=== PATIENT | female | born 1985 | race Caucasian/White ===

== ENCOUNTER 2016-06-05 04:53 | Emergency (ER) | payer MEDICAID ==
[~2016-06-05 04:53] MED LIST: ALBU8.5H4 IH; IBUP-1827 PO; KETO10TA PO; MTC10T1 PO; SULF1TAB7 PO
[2016-06-05 04:56] VITALS: BP 142/66; PULSE 115; RESP 18; O2SAT 100
--- NOTE | 2016-06-05 05:10 | ED.REPORT ---
HPI-General Illness Date of Service Jun 05, 2016 ED Provider: Dr. Ajit Singh M.D. A 31 year old female with a history of anxiety, nephrolithiasis, asthma, GERD, and migraines presents to the ED with a dog bite to her left thigh onset [place]. The patient reports being attacked by an unknown dog through several layers of clothing. She now reports left hip pain and thigh pain. The patient denies trouble walking or other symptoms. She does not have a clear memory of the event. Nursing Notes Stated Complaint: DOG BITE Chief Complaint: Extremity Trauma Nursing Notes Reviewed: Yes Allergies: Coded Allergies: hydrocodone bitartrate (Verified Allergy, Severe, HIVES, 09/07/15) cefazolin (Verified Allergy, Intermediate, RASH, 09/07/15) Scheduled Amoxicillin/Clav K 875-125 mg (Augmentin 875-125 mg) 1 Each Tablet 1 TABLET PO BID Ketorolac Tromethamine (Ketorolac Tromethamine) 10 Mg Tablet 10 MG PO QID Metoclopramide-Expunged Drug, Do Not Renew! (Reglan-Expunged Drug, Do Not Renew! ) 10 Mg Tablet 10 MG PO PRN Scheduled PRN Albuterol-Expunged Drug, Do Not Renew! (Albuterol-Expunged Drug, Do Not Renew!) 8.5 Gm Hfa.aer.ad 2 PUFFS IH PRN Ibuprofen (Ibuprofen) 600 Mg Tablet 600 MG PO QID PRN PRN For Pain Ibuprofen (Ibuprofen) 600 Mg Tablet 600 MG PO QID PRN PRN For Pain Sulfamethoxazole/Trimeth 800-160 mg (Bactrim DS) 1 Each Tablet 1 TABLET PO BID PRN PRN infection General Time Seen by MD: 05:09 Chief Complaint Other (Dog Bite) Hx Obtained From: Patient Arrived By: Walk-in Sudden in Onset?: Yes Onset Occurred: 5 - 8 hours ago Symptom Duration: Since onset Location: : Hip left: Thigh left Quality: Painful Severity: Current: Moderate Severity: Maximum: Moderate Associated with: Denies: Fever Pertinent Negative: Relieved by nothing Context Related History: Reports Asthma, Reports GERD Recent Healthcare: No recent doctor visit Past Medical History Past Medical History Anxiety Kidney Stones Asthma GERD Migraines Past Surgical History 3 abd: cesarian, adhesion removal & ovarian cyst removal Smoking History Current Every Day Smoker Social History Alcohol Use: "Social" Drug Use: Meth, THC, Other Other Social History: Good social support, Local resident Occupation disability for mental illness Ambulatory Status Independent Review of Systems - Trouble walking Full Review of Systems Constitutional: Denies: Fever Respiratory: Denies: Non-productive cough, Shortness of breath GI: Denies: Diarrhea, Vomiting Musculoskeletal: Reports: Extremity pain (Left thigh), Joint pain (Left hip) Complete sys rev & neg: except as marked. Physical Exam Vital Signs Vital Signs Date Time Temp Pulse Resp B/P Pulse Ox O2 Delivery O2 Flow Rate FiO2 06/05/16 04:56 36.8 115 18 142/66 100 Room Air Initial VS: Reviewed Head / Eyes: Atraumatic, Normocephalic ENT: Conjunctiva normal, No scleral icterus Neck: Supple, Full range of motion Respiratory: Breath sounds normal, Clear to auscultation, No respiratory distress Neurologic: Alert, Oriented, Nonfocal Psychiatric: Mood/affect normal, Behavior normal, Normal thought content General/Constitutional: Awake, Alert Overwrought Lower Extremity / Pelvis / MS: Neurologic intact, Vascular intact Lower Extremities Normals: Hip R exam normal, Hip L exam normal (Rotation of hip nontender) Skin: Warm, Dry 8x6cm oval bruise with linear superficial skin abrasion to left thigh No other wounds visualized Re-Eval/Medical Decision Med Decision/Clinical Course 31-year-old presents with a dog bite through four layers of clothing with some abrasion but no actual laceration. There is a sizable hematoma that is tender. No other injury. Bacitracin Telfa for external wound care, and Augmentin twice a day for seven days. Follow up with PCP. Percocet prepack given Source of Hx: Old records Time of Eval: 05:34 Patient Status: Condition improved Re-Evaluation/Progress Note: Discussed with patient physical exam findings, diagnosis, and plan for discharge. Follow-up and return to the ER instructions given. Patient agrees with plan for care and all questions were addressed. Counseled Regarding: Diagnosis, Need for follow-up, When/why to return to ED Discharge & Departure Shift Change Sign-Out Response to Therapy: Improved Primary Impression: Dog bite Disposition: Home Discharge Condition All VS Reviewed: Yes Condition: Improved Patient Instructions: Acute Wound Care (ED) Additional Instructions: Ibuprofen four times daily as needed for pain. Augmentin twice daily Follow-up with your doctor in the office Return if any immediate issues. Referrals: Pool Moon MD (PCP) Janneth Attestation Portions of this note were transcribed by Renetta Madden. I, Dr. Singh, personally performed the history, physical exam, and medical decision-making; I reviewed and confirmed the accuracy of the information in the transcribed note. Signed by: Janneth Diallo, 06/05/2016, 05:40 copies to: Pool Moon MD, Christopher W MD Jun 05, 2016 05:10 RENETTA MADDEN Jun 05, 2016 05:17
[2016-06-05] MEDS ORDERED: Amoxicillin-Clav 875-125 mg Tablet PO ONE (05:15)
[2016-06-05] MEDS ORDERED: Bacitracin Ointment Packet TOPICAL ONE (05:15)
[2016-06-05] MEDS ORDERED: _oxyCODONE/APAP 5-325 mg Tablet PO PRN (05:20)
[2016-06-05] MEDS ORDERED: IBUP-1827 PO (05:31)
[2016-06-05] MEDS ORDERED: AMOX-366 PO (05:31)
== END 2016-06-05 05:59 | disposition home or self-care (01) ==
LOC: SED 04:57
DX: S71.152A Open bite, left thigh, initial encounter (principal); W54.0XXA Bitten by dog, initial encounter; Y92.411 Interstate highway as the place of occurrence of the external cause; Y93.01 Activity, walking, marching and hiking; Y99.8 Other external cause status; F41.9 Anxiety disorder, unspecified; J45.909 Unspecified asthma, uncomplicated; K21.9 Gastro-esophageal reflux disease without esophagitis; F17.200 Nicotine dependence, unspecified, uncomplicated; Z87.442 Personal history of urinary calculi; Z86.69 Personal history of other diseases of the nervous system and sense organs; Z88.5 Allergy status to narcotic agent; Z88.1 Allergy status to other antibiotic agents

== ENCOUNTER 2016-08-03 22:46 | Emergency (ER) | payer MEDICAID ==
[~2016-08-03 22:46] MED LIST changes: +AMOX-366 PO
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
[2016-08-03 23:14] VITALS: BP 136/83; PULSE 110; RESP 20; O2SAT 100
[2016-08-04] MEDS ORDERED: Ondansetron 8 mg ODT Tablet PO PRN (01:10)
[2016-08-04] MEDS ORDERED: IBUP-1827 PO (01:53)
[2016-08-04 02:23] VITALS: BP 103/64; PULSE 96; RESP 16; O2SAT 100
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
== END 2016-08-04 02:24 | disposition home or self-care (01) ==
LOC: SED 22:46
DX: S50.11XA Contusion of right forearm, initial encounter (principal); S09.90XA Unspecified injury of head, initial encounter; F15.10 Other stimulant abuse, uncomplicated; X58.XXXA Exposure to other specified factors, initial encounter; Y93.89 Activity, other specified; Y99.8 Other external cause status; Y92.9 Unspecified place or not applicable; J45.909 Unspecified asthma, uncomplicated; K21.9 Gastro-esophageal reflux disease without esophagitis; F17.200 Nicotine dependence, unspecified, uncomplicated; F12.10 Cannabis abuse, uncomplicated; Z87.442 Personal history of urinary calculi; Z79.51 Long term (current) use of inhaled steroids; Z88.1 Allergy status to other antibiotic agents; Z88.5 Allergy status to narcotic agent

== ENCOUNTER 2016-08-24 08:33 | Emergency (ER) | payer MEDICAID, OTHER ==
[~2016-08-24] VITALS: Ht 154.9 cm; Wt 61.4 kg
[2016-08-24 08:37] VITALS: BP 130/80; PULSE 87; RESP 16; O2SAT 100
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
[2016-08-24] MEDS ORDERED: 0.9% Sodium Chloride 1,000 ML IV ONE (09:12)
[2016-08-24 09:50] LABS: BASOPHILS % (AUTO) 0.3 % (0-3); EOSINOPHILS % (AUTO) 3.1 % (0-5); MONOCYTES % (AUTO) 8.7 % (4-12); Mean Corpuscular Hemoglobin 29.3 pg (27.0-35.0); Mean Corpuscular Volume 86.9 fL (81-100); NEUTROPHILS % (AUTO) 51.8 % (40-74); Platelet Count 349 bil/L (150-400)
[2016-08-24 10:06] LABS: Magnesium 2.1 mg/dL (1.6-2.6)
== END 2016-08-24 11:50 | disposition home or self-care (01) ==
LOC: SED 08:33
DX: F15.10 Other stimulant abuse, uncomplicated (principal); Z59.0 Homelessness; K21.9 Gastro-esophageal reflux disease without esophagitis; F43.10 Post-traumatic stress disorder, unspecified; F17.200 Nicotine dependence, unspecified, uncomplicated; Z88.1 Allergy status to other antibiotic agents; Z88.5 Allergy status to narcotic agent
CPT/HCPCS: 36415; 80053; 83690; 83735; 85025; 87491; 87591; 96361; 96374; 99284; J1885; J7030

== ENCOUNTER 2016-10-24 11:13 | Emergency (ER) | payer OTHER ==
[~2016-10-24] VITALS: Ht 157.5 cm; Wt 79.5 kg
[2016-10-24 11:20] VITALS: BP 120/80; PULSE 94; RESP 18; O2SAT 100
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
== END 2016-10-24 15:53 | disposition home or self-care (01) ==
LOC: SED 11:13
DX: M54.5 Low back pain (principal); F15.10 Other stimulant abuse, uncomplicated; F41.9 Anxiety disorder, unspecified; J45.909 Unspecified asthma, uncomplicated; K21.9 Gastro-esophageal reflux disease without esophagitis; F43.10 Post-traumatic stress disorder, unspecified; F17.200 Nicotine dependence, unspecified, uncomplicated; Z87.442 Personal history of urinary calculi; Z88.5 Allergy status to narcotic agent; Z88.1 Allergy status to other antibiotic agents

== ENCOUNTER 2016-10-26 15:12 | Emergency (ER) | payer OTHER ==
[2016-10-26 15:12] VITALS: BP 121/86; PULSE 109; RESP 21; O2SAT 100
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
[2016-10-26 15:55] VITALS: BP 121/86; PULSE 109; RESP 21; O2SAT 100
== END 2016-10-26 17:10 | disposition home or self-care (01) ==
LOC: SED 15:12
DX: F43.0 Acute stress reaction (principal); F19.10 Other psychoactive substance abuse, uncomplicated; K21.9 Gastro-esophageal reflux disease without esophagitis; F17.200 Nicotine dependence, unspecified, uncomplicated; Z88.1 Allergy status to other antibiotic agents; Z88.5 Allergy status to narcotic agent

== ENCOUNTER 2016-10-26 23:34 | Emergency (ER) | payer OTHER ==
[~2016-10-26] VITALS: Ht 154.9 cm; Wt 56.8 kg
[2016-10-26 23:51] VITALS: BP 117/72; PULSE 98; RESP 18; O2SAT 99
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
[2016-10-27] MEDS ORDERED: Ondansetron 8 mg ODT Tablet PO ONE (00:55)
[2016-10-27 01:28] LABS: BASOPHILS % (AUTO) 0.4 % (0-3); EOSINOPHILS % (AUTO) 2.9 % (0-5); MONOCYTES % (AUTO) 10 % (4-12); Mean Corpuscular Hemoglobin 29.8 pg (27.0-35.0); Mean Corpuscular Volume 88 fL (81-100); NEUTROPHILS % (AUTO) 42.5 % (40-74); Platelet Count 485 bil/L (150-400)
== END 2016-10-27 11:47 | disposition home or self-care (01) ==
LOC: SED 23:34
DX: F15.10 Other stimulant abuse, uncomplicated (principal); F19.10 Other psychoactive substance abuse, uncomplicated; M54.2 Cervicalgia; M25.551 Pain in right hip; Y04.0XXA Assault by unarmed brawl or fight, initial encounter; Y93.89 Activity, other specified; Y92.89 Other specified places as the place of occurrence of the external cause; Y99.8 Other external cause status; G43.909 Migraine, unspecified, not intractable, without status migrainosus; J45.901 Unspecified asthma with (acute) exacerbation; K21.9 Gastro-esophageal reflux disease without esophagitis; F41.9 Anxiety disorder, unspecified; F17.200 Nicotine dependence, unspecified, uncomplicated; Z87.442 Personal history of urinary calculi; Z88.5 Allergy status to narcotic agent; Z88.8 Allergy status to other drugs, medicaments and biological substances
CPT/HCPCS: 36415; 80053; 81002; 82550; 85025; 96372; 99284; J1885

== ENCOUNTER 2016-10-27 16:24 | Emergency (ER) | payer OTHER ==
[~2016-10-27] VITALS: Ht 154.9 cm; Wt 56.8 kg
[2016-10-27 17:10] VITALS: BP 113/77; PULSE 84; RESP 14; O2SAT 100
== END 2016-10-27 18:10 | disposition left against medical advice (07) ==
LOC: SED 16:24
DX: Z53.21 Procedure and treatment not carried out due to patient leaving prior to being seen by health care provider (principal)

== ENCOUNTER 2016-11-28 23:22 | Inpatient (IN) | payer OTHER ==
[~2016-11-28] VITALS: Ht 154.9 cm; Wt 61.4 kg
[2016-11-28] MEDS: 0.9% Sodium Chloride 1,000 ML IV ONE (00:58)
[2016-11-28 23:26] VITALS: BP 120/77; PULSE 117; RESP 18; O2SAT 100
[2016-11-28] MEDS ORDERED: Ondansetron 2 mg/mL 2 mL Inj IVPUSH ONE (23:45)
[2016-11-28] MEDS ORDERED: Ketorolac 15 mg/mL Inj IVPUSH ONE (23:45)
--- NOTE | 2016-11-28 23:48 | ED.REPORT ---
HPI-Chest Pain Under 40 Date of Service Nov 28, 2016 ED Provider: Ajit Singh MD The pt is a 31 y/o female with a hx of DM, bile duct dilation (unknown cause), methamphetamine use, and asthma who presents to the ED complaining of right upper quadrant that radiates to her back, onset yesterday. Associated sx include nausea and difficulty breathing due to the pain. She denies dark urine, white stool and any other sx at this time. She recently completed an antibiotic course for a bladder infection. Nursing Notes Stated Complaint: CHEST PAIN Chief Complaint: Chest Pain Nursing Notes Reviewed: Yes Allergies: Coded Allergies: hydrocodone bitartrate (Verified Allergy, Severe, HIVES, 11/28/16) cefazolin (Verified Allergy, Intermediate, RASH, 11/28/16) Scheduled Amoxicillin/Clav K 875-125 mg (Augmentin 875-125 mg) 1 Each Tablet 1 TABLET PO BID Ketorolac Tromethamine (Ketorolac Tromethamine) 10 Mg Tablet 10 MG PO QID Metoclopramide-Expunged Drug, Do Not Renew! (Reglan-Expunged Drug, Do Not Renew! ) 10 Mg Tablet 10 MG PO PRN Scheduled PRN Albuterol-Expunged Drug, Do Not Renew! (Albuterol-Expunged Drug, Do Not Renew!) 8.5 Gm Hfa.aer.ad 2 PUFFS IH PRN Ibuprofen (Ibuprofen) 600 Mg Tablet 600 MG PO QID PRN PRN For Pain Ibuprofen (Ibuprofen) 600 Mg Tablet 600 MG PO QID PRN PRN For Pain Ibuprofen (Ibuprofen) 600 Mg Tablet 600 MG PO QID PRN PRN For Pain Sulfamethoxazole/Trimeth 800-160 mg (Bactrim DS) 1 Each Tablet 1 TABLET PO BID PRN PRN infection General Time Seen by : 23:38 Chief Complaint Other (right upper quadrant ) Hx Obtained From: Patient Arrived By: Walk-in Sudden in Onset?: Yes Onset Occurred: Yesterday Symptom Duration: Since onset Quality: Painful (right upper quadrant) Radiation: : Back Severity: Current: Severe Severity: Maximum: Severe Recent Healthcare: No recent doctor visit Past Medical History Past Medical History Notes: Patient seen here earlier today, please see that note after being brought by police. Patient's been seen twice today at [facility] as well Past Medical History No documented prior psych history Anxiety Kidney Stones Asthma GERD Migraines PTSD TMJ disease Past Surgical History 3 abd: cesarian, adhesion removal & ovarian cyst removal Smoking History Current Every Day Smoker Social History Alcohol Use: "Social" Drug Use: Meth, THC, Other Other Social History: Local resident Occupation disability for mental illness Ambulatory Status Independent Review of Systems Reports: difficulty breathing due to the pain Denies: dark urine Denies: white stool GI: Reports: Abdominal pain (right upper quadrant), Nausea Musculoskeletal: Reports: Back pain Complete sys rev & neg: except as marked. Physical Exam Initial Vital Signs Vital Signs (First) Date Time Temp Pulse Resp B/P Pulse Ox O2 Delivery O2 Flow Rate FiO2 11/28/16 23:26 36.8 117 18 120/77 100 Room Air Initial VS: Reviewed Head / Eyes: Atraumatic, Normocephalic Neck: Supple, Non-tender, Full range of motion Extremities: Vascular intact, Neuro intact, No swelling, No tenderness Skin: Warm, Dry, No cyanosis Neurologic: Alert, Oriented, Nonfocal General/Constitutional: Awake, Alert, Cooperative Distress / Hydration: Positive: Distress moderate Respiratory / Chest: Atraumatic, Breath sounds NL, Breath sounds = bilat, No respiratory distress, No rales, No rhonchi, No wheezing Cardiovascular: Heart rate NL, Regular rhythm, Heart sounds NL, No gallop, No murmurs, No rubs Abdomen: Atraumatic, Soft Tenderness/Guarding/Rebound: Positive: Guarding voluntary, Rebound localized, Tender RUQ... (Severe) Interpretation & Diagnostics CONCLUSION: Areas of decreased enhancement involving the superior pole the right kidney raising the possibility of focal pyelonephritis. There is some free fluid in the pelvis and possibly a small cyst of right ovary. Dilated common bile duct measuring 11.6 mm but no intrahepatic biliary dilatation. These findings were discussed with Dr. Singh at 11/29/2016 2:03:06 AM PDT. He states that patient has positive urine and the dilated common bile duct has been previously documented. This report was transmitted to the emergency room at 11/29/2016 - 2:05:48 AM PDT. Lab Results Interpretation Result Diagram: 11/29/16 0020 11/29/16 0020 Test 11/29/16 00:20 11/29/16 00:48 White Blood Count 18.7th/mm3 (3.8-10.1) Red Blood Count 4.41mil/mm3 (3.90-5.20) Hemoglobin 13.1g/dL (12.0-15.6) Hematocrit 38.5% (35.0-46.0) Mean Corpuscular Volume 87.3fL (81-100) Mean Corpuscular Hemoglobin 29.7pg (27.0-35.0) Mean Corpuscular Hemoglobin Concent 34.0% (32.0-37.0) Red Cell Distribution Width 14.4% (12.3-15.4) Platelet Count 361bil/L (150-400) Neutrophils (%) (Auto) 88.3% (40-74) Lymphocytes (%) (Auto) 5.3% (14-46) Monocytes (%) (Auto) 5.8% (4-12) Eosinophils (%) (Auto) 0.2% (0-5) Basophils (%) (Auto) 0.1% (0-3) Prothrombin Time 10.3sec (8.1-12.5) Prothromb Time International Ratio 0.96ratio Sodium Level 129mEq/L (134-144) Potassium Level 4.0mEq/L (3.5-5.2) Chloride Level 91mEq/L (97-108) Carbon Dioxide Level 23mmol/L (18-29) Blood Urea Nitrogen 18mg/dL (6-20) Creatinine 0.72mg/dL (0.57-1.00) Estimat Glomerular Filtration Rate 134mL/min (>59) Glucose Level 103mg/dL (60-99) Lactic Acid Level 0.9mmol/L (0.4-2.0) Calcium Level 9.0mg/dL (8.5-10.1) Magnesium Level 1.9mg/dL (1.6-2.6) Total Bilirubin 0.4mg/dL (0.0-1.2) Aspartate Amino Transf (AST/SGOT) 24U/L (0-50) Alanine Aminotransferase (ALT/SGPT) 15U/L (0-32) Alkaline Phosphatase 75U/L (25-150) Total Protein 8.1g/dL (6.4-8.4) Albumin 4.0g/dL (3.4-5.0) Lipase 15U/L (13-60) Procalcitonin 0.31ng/mL (0.00-0.08) Urine Color Yellow (YELLOW) Urine Appearance Clear (CLEAR,HAZY) Urine pH 7.0 (5.0-8.0) Urine Specific [place] 1.010 (1.003-1.035) Urine Protein 30mg/dL (NEG,TRACE) Urine Glucose (UA) Negativemg/dL (NEGATIVE) Urine Ketones Negativemg/dL (NEGATIVE) Urine Occult Blood Small (NEGATIVE) Urine Nitrite Positive (NEGATIVE) Urine Bilirubin Negative (NEGATIVE) Urine Urobilinogen Normalmg/dL (NORMAL) Urine Leukocyte Esterase Moderate (NEGATIVE) Urine RBC 0-2/hpf (0-2) Urine WBC >50/hpf (0-5) Urine Epithelial Cells Many/hpf (NONE-MOD) Urine Crystals None seen (NONE SEEN) Urine Bacteria Many/hpf (NONE-FEW) Urine Hyaline Casts None/lpf (NONE) Urine Granular Casts None seen (NONE SEEN) Urine Waxy Casts None seen (NONE SEEN) Urine Red Blood Cell Casts None seen (NONE SEEN) Urine White Blood Cell Casts None seen (NONE SEEN) Urine Mucus None seen (None Seen) Urine Trichomonas None seen (NONE SEEN) Urine Yeast None (NONE SEEN) Urinalysis Comment None Urine Culture Reflexed Indicated ECG Interpretation Time: 23:37 Interpreted by: ED physician Normal ECG Interpretation: Normal sinus rhythm Abnormal Rate: 110 (109) Rhythm / Conduction: Tachycardia Re-Eval/Medical Decision Med Decision/Clinical Course 31-year-old with history of drug abuse, presents with right-sided flank pain and right upper quadrant abdominal pain, felt to be pyelonephritis. She had a prior history also dilatation of her bile duct and may be gallstones, but a CAT scan shows only pyelonephritis, and her urine is certainly consistent with that. She already been prescribed antibiotics for UTI and has not filled that were taken the meds. She is poorly compliant and unlikely to follow-up outpatient instructions at this point. She has obvious pile on the CAT scan, an 18,000 white count and is generally ill, and will require IV antibiotics and at least a brief period of inpatient treatment. Admitted now to the medicine service. Transported in stable condition. Source of Hx: Old records Re-Evaluation/Progress : Time of Eval: 03:05 Patient Status: Condition improved Re-Evaluation/Progress Note: Informed of CT results and discussed plan for admission. Pt understands and agrees. Consultation : Referral / Consult Name: Devon Garcia MD Consulted With: Hospitalist Call Returned at: 03:05 Cleaning Team Member: Will see patient, Agrees with plan, Accepts admit Counseled Regarding: Diagnosis, Lab results, Need for admission Discharge & Departure Primary Impression: Pyelonephritis Additional Impressions: Substance abuse Methamphetamine abuse Disposition: Home Discharge Condition All VS Reviewed: Yes Condition: Improved Referrals: NOPCP (PCP) Janneth Attestation Portions of this note were transcribed by Alberto Arnold. Walter,, personally performed the history,physical exam and medical decision-making;I reviewed and confirmed the accuracy of the information in the transcribed note. Signed by Janneth Larios. 11/28/16 Portions of this note were transcribed by Jossie Richard. Dr. Francisco Watson personally performed the history, physical exam and medical decision-making; I reviewed and confirmed the accuracy of the information in the transcribed note. Signed by: Janneth Roman, 11/29/2016. Ajit Singh MD Nov 28, 2016 23:48 Alberto Arnold Nov 28, 2016 23:54 JOSSIE RICHARD Nov 29, 2016 00:42
[2016-11-29 00:40] LABS: BASOPHILS % (AUTO) 0.1 % (0-3); EOSINOPHILS % (AUTO) 0.2 % (0-5); MONOCYTES % (AUTO) 5.8 % (4-12); Mean Corpuscular Hemoglobin 29.7 pg (27.0-35.0); Mean Corpuscular Volume 87.3 fL (81-100); NEUTROPHILS % (AUTO) 88.3 % (40-74); Platelet Count 361 bil/L (150-400)
[2016-11-29] MEDS ORDERED: 0.9% Sodium Chloride 1,000 ML IV ONE ×2 (00:41→05:05)
[2016-11-29] MEDS ORDERED: Dexamethasone 10 mg/mL Inj IVPUSH ONE (00:45)
[2016-11-29] MEDS ORDERED: Haloperidol 5 mg/mL Inj IVPUSH ONE (00:45)
[2016-11-29 00:57] LABS: INR 0.96 ratio
[2016-11-29] MEDS: 0.9% Sodium Chloride 1,000 ML IV ONE (01:00)
[2016-11-29] MEDS: HYDROmorphone 1 mg/mL Inj IVPUSH PRN ×3 (01:00→03:41)
[2016-11-29 01:03] LABS: APPEARANCE,URINE CLEAR (CLEAR,HAZY); COLOR,URINE YELLOW (YELLOW)
[2016-11-29 01:04] LABS: OCCULT BLOOD,URINE SMALL (NEGATIVE); UROBILINOGEN,URINE NORMAL (NORMAL)
[2016-11-29 01:09] LABS: Magnesium 1.9 mg/dL (1.6-2.6)
[2016-11-29] MEDS ORDERED: levoFLOXacin Inj 750 MG in IV Premix 1 EACH IV ONE (01:15)
[2016-11-29] MEDS ORDERED: Lactated Ringer's 1,000 ML IV SCH (03:07)
[2016-11-29] MEDS ORDERED: 0.9% Sodium Chloride 1,000 ML IV SCH (03:07)
[2016-11-29] MEDS ORDERED: Polyethylene Glycol (PEG) 17 Gm Powder PO PRN (03:10)
[2016-11-29] MEDS ORDERED: Ondansetron 2 mg/mL 2 mL Inj IVPUSH PRN (03:10)
[2016-11-29] MEDS ORDERED: Alum-Mag Hydrox-Simeth 30 mL Suspension PO PRN (03:10)
--- NOTE | 2016-11-29 03:11 | PCM.HPMED ---
Subjective Date of Service Nov 29, 2016 Primary Provider: Admitting Physician: Primary Care Physician: Wilfredo Garcia MD Attending Physician: Admit Status: From the Emergency Department, Full Admit, [facility] Telemetry Chief Complaint: Flank pain History of Present Illness: Lyudmila Delgado is a 31 yo female with Anxiety, bile duct dilation (unknown cause ), methamphetamine use, and asthma who presents to [facility] emergency department complaining of right flank pain Patient reported the pain started yesterday and initially felt in the anterior right upper quadrant that radiates to her back. Pain described as severe and sharp pain. persistent as well. Associated symptoms include nausea and difficulty breathing due to the pain. She likely had chills and body aches. She recently completed an antibiotic (name?) course for a bladder infection. Patient active Methamphetamine IV user but reported history of endocarditis Case discussed with Dr Singh, finding consistent with pyelonephritis and will be admitted for treatment Review of Systems: Pertinent positives as noted in HPI. All other systems were reviewed and are negative Allergies Coded Allergies: hydrocodone bitartrate (Verified Allergy, Severe, HIVES, 11/28/16) cefazolin (Verified Allergy, Intermediate, RASH, 11/28/16) Home Medications None reported PMH Anxiety/Depression History of Kidney Stones Asthma GERD Migraines PTSD TMJ disease Methamphetamine Abuse . Surgical History Adhesion removal & ovarian cyst removal Family History No cardiac disease Social History Hx Alcohol Use: Yes (Pt denies) Hx Substance Use: No (pt denies, u tox + for meth, opites, ectasy) Hx Tobacco Use: Yes (5 CIGS A DAY) Smoking Status: Current Every Day Smoker Living Arrangement: Alone Exam Vital Signs Vital Sign - Last Date Time Temp Pulse Resp B/P Pulse Ox O2 Delivery O2 Flow Rate FiO2 11/28/16 23:26 36.8 117 18 120/77 100 Room Air Intake and Output 11/28/16 11/28/16 11/29/16 Cumulative From/Thru 15:00 23:00 07:00 11/28/16 23:26 - 11/29/16 01:02 Intake Total 999 ml 999 ml Balance 999 ml 999 ml Intake IV Total 999 ml 999 ml Exam General: Alert, Oriented X3, Cooperative, mild acute Distress Eyes: PERRLA, Scleral Anicteric Mouth: Mouth Normal, Mucous Membranes Moist/[place] Neck: Supple, no Thyromegaly, trachea central. Chest & Lungs: Clear to auscultation & percussion, No adventitious breath sounds, no crackles, no wheeze Cardiovascular: Normal S1, Normal S2, No Murmurs/Rubs/Gallops, sinus tachycardia , (No JVD, no peripheral edema) Pulses: Radial (present and equal), Dorsalis Pedi (present and equal) Abdomen: Soft, Non-tender, Non-distended, Normoactive bowel tones. Musculoskeletal: Unremarkable. Normal range of motion, no swollen or erythematous joints. right CVA tenderness Extremities: No edema, no cyanosis, no clubbing. Skin: No rashes. Warm and dry, no erythematous areas Neurological: Grossly neurologically intact, Normal Speech, Sensation Intact Lymphatic: Lymph nodes Cervical and Axillary not palpable Lab and Diagnostics Labs Laboratory Tests Test 11/29/16 00:20 11/29/16 00:48 White Blood Count 18.7th/mm3 (3.8-10.1) Red Blood Count 4.41mil/mm3 (3.90-5.20) Hemoglobin 13.1g/dL (12.0-15.6) Hematocrit 38.5% (35.0-46.0) Mean Corpuscular Volume 87.3fL (81-100) Mean Corpuscular Hemoglobin 29.7pg (27.0-35.0) Mean Corpuscular Hemoglobin Concent 34.0% (32.0-37.0) Red Cell Distribution Width 14.4% (12.3-15.4) Platelet Count 361bil/L (150-400) Neutrophils (%) (Auto) 88.3% (40-74) Lymphocytes (%) (Auto) 5.3% (14-46) Monocytes (%) (Auto) 5.8% (4-12) Eosinophils (%) (Auto) 0.2% (0-5) Basophils (%) (Auto) 0.1% (0-3) Prothrombin Time 10.3sec (8.1-12.5) Prothromb Time International Ratio 0.96ratio Sodium Level 129mEq/L (134-144) Potassium Level 4.0mEq/L (3.5-5.2) Chloride Level 91mEq/L (97-108) Carbon Dioxide Level 23mmol/L (18-29) Blood Urea Nitrogen 18mg/dL (6-20) Creatinine 0.72mg/dL (0.57-1.00) Estimat Glomerular Filtration Rate 134mL/min (>59) Glucose Level 103mg/dL (60-99) Lactic Acid Level 0.9mmol/L (0.4-2.0) Calcium Level 9.0mg/dL (8.5-10.1) Magnesium Level 1.9mg/dL (1.6-2.6) Total Bilirubin 0.4mg/dL (0.0-1.2) Aspartate Amino Transf (AST/SGOT) 24U/L (0-50) Alanine Aminotransferase (ALT/SGPT) 15U/L (0-32) Alkaline Phosphatase 75U/L (25-150) Total Protein 8.1g/dL (6.4-8.4) Albumin 4.0g/dL (3.4-5.0) Lipase 15U/L (13-60) Urine Color Yellow (YELLOW) Urine Appearance Clear (CLEAR,HAZY) Urine pH 7.0 (5.0-8.0) Urine Specific [place] 1.010 (1.003-1.035) Urine Protein 30mg/dL (NEG,TRACE) Urine Glucose (UA) Negativemg/dL (NEGATIVE) Urine Ketones Negativemg/dL (NEGATIVE) Urine Occult Blood Small (NEGATIVE) Urine Nitrite Positive (NEGATIVE) Urine Bilirubin Negative (NEGATIVE) Urine Urobilinogen Normalmg/dL (NORMAL) Urine Leukocyte Esterase Moderate (NEGATIVE) Urine RBC 0-2/hpf (0-2) Urine WBC >50/hpf (0-5) Urine Epithelial Cells Many/hpf (NONE-MOD) Urine Crystals None seen (NONE SEEN) Urine Bacteria Many/hpf (NONE-FEW) Urine Hyaline Casts None/lpf (NONE) Urine Granular Casts None seen (NONE SEEN) Urine Waxy Casts None seen (NONE SEEN) Urine Red Blood Cell Casts None seen (NONE SEEN) Urine White Blood Cell Casts None seen (NONE SEEN) Urine Mucus None seen (None Seen) Urine Trichomonas None seen (NONE SEEN) Urine Yeast None (NONE SEEN) Urinalysis Comment None Urine Culture Reflexed Indicated Microbiology 11/29/16 Blood Culture, Received Pending 11/29/16 Urine Culture, Received Pending Result Diagram: 11/29/16 0020 11/29/16 0020 Assessment & Plan Lyudmila Delgado is a 31 yo female with Anxiety, bile duct dilation (unknown cause ), methamphetamine use, and asthma who presents to [facility] emergency department complaining of right upper quadrant pain. 1. Sepsis, Acute. Present on admission Meeting criteria with tachycardia, fever and leukocytosis with source of infection being urinary. - monitor on telemetry - IV fluids resuscitations according to Sepsis protocol - early initiation of antibiotics 2 Acute Pyelonephritis. Present on admission Likely related to recent Urinary tract infection. Likely a resistant bacteria to the antibiotics she was treated with - clear liquid diet with antinausea medications - Levaquin IV for empiric antibiotics - Infection disease consult if available 3. Methamphetamine Abuse, chronic - monitor for withdrawal symptoms and treat symptomatically 4 Nicotine Dependence Cessation discussed and encouraged - Nicotine patch upon request - Acetaminophen as needed for mild pain/fever/headache - Bowel regimen as needed - Antiemetic as needed Patient admitted under inpatient status with expected length of stay > 2 midnights for severity of present symptoms, complexities of treatment plan and risk for adverse event . Resuscitation Status: CPR: Attempt Resuscitation Devon Garcia MD Nov 29, 2016 03:11
[2016-11-29 03:50] VITALS: BP 105/63; PULSE 107; RESP 22; O2SAT 96
[2016-11-29 06:08] VITALS: PULSE 92
--- NOTE | 2016-11-29 06:26 | NUR ---
Admit to MOC/ AMA received phone report from ED at 0356, pt arrived to floor at 0430, pt able to ambulate to bed, pt noted teary, not cooperative with nurse, using foul language, vitals taken, noted BP at 99/64 recheck at 0500 Bp at 95/62, despite receiving 2L bolus in ED, obtained order for NS bolus 1L, started, telemetry placed sinus rhythm 90s per monitoring specialist, pt noted verbalizing plans to go AMA, night hospitalist rounding at bedside, reinforced need to be treated for infection,pt non agreeable, became verbally abusive to primary nurse, pt verbalizing want to smoke cigarette, noted 1 pack in pts bag, at 0600, informed nursing supervisor dry cleaning of situation, pt pulled IV access out, pulled telemetry, at 0620 nursing supervisor dry cleaning and security at bedside, pt refused to sign AMA papers, 0624 pt ambulated independently, escorted by nursing supervisor dry cleaning and security, attending night hospitalist informed.
--- NOTE | 2016-11-29 06:28 | PCM.DC.MED ---
Discharge Summary Date of Service Nov 29, 2016 Dates of Hospitalization Date of Hospital Admission Nov 29, 2016 at 04:01 Date of Discharge: Nov 29, 2016 Providers: Admitting Physician: Devon Garcia MD Primary Care Physician: Wilfredo Garcia MD Attending Physician: Lynn Joshi DO Diagnosis at Time of Discharge Diagnosis at Time of Discharge Primary diagnosis Sepsis, Acute. Acute Pyelonephritis. Secondary diagnosis Methamphetamine Abuse Nicotine Dependence Consultations none Brief History Lyudmila Delgado is a 31 yo female with Anxiety, bile duct dilation (unknown cause ), methamphetamine use, and asthma who presents to [facility] emergency department complaining of right flank pain Patient reported the pain started yesterday and initially felt in the anterior right upper quadrant that radiates to her back. Pain described as severe and sharp pain. persistent as well. Associated symptoms include nausea and difficulty breathing due to the pain. She likely had chills and body aches. She recently completed an antibiotic (name?) course for a bladder infection. Patient active Methamphetamine IV user but reported history of endocarditis Case discussed with Dr Singh, finding consistent with pyelonephritis and will be admitted for treatment Hospital Course 1. Sepsis, Acute. Present on admission Meeting criteria with tachycardia, fever and leukocytosis with source of infection being urinary. - monitor on telemetry - IV fluids resuscitations according to Sepsis protocol - early initiation of antibiotics 2 Acute Pyelonephritis. Present on admission Likely related to recent Urinary tract infection. Likely a resistant bacteria to the antibiotics she was treated with - clear liquid diet with antinausea medications - Levaquin IV for empiric antibiotics - Infection disease consult if available 3. Methamphetamine Abuse, chronic - monitor for withdrawal symptoms and treat symptomatically 4 Nicotine Dependence Cessation discussed and encouraged - Nicotine patch upon request PATIENT WAS AGITATED AND COMPLAINED ABOUT BEING IN THE HOSPITAL. DESPITE CONVEYING THE SEPSIS AND SEVERE INFECTION AND ITS COMPLICATIONS. THE PATIENT LEFT AGAINST MEDICAL ADVISE. Exam Vital Signs (Last) Date Time Temp Pulse Resp B/P Pulse Ox O2 Delivery O2 Flow Rate FiO2 11/29/16 06:08 92 11/29/16 04:00 36.8 22 105/63 96 Room Air Exam General: Alert, Oriented X3, Cooperative, mild acute Distress Eyes: PERRLA, Scleral Anicteric Mouth: Mouth Normal, Mucous Membranes Moist/[place] Neck: Supple, no Thyromegaly, trachea central. Chest & Lungs: Clear to auscultation & percussion, No adventitious breath sounds, no crackles, no wheeze Cardiovascular: Normal S1, Normal S2, No Murmurs/Rubs/Gallops, sinus tachycardia , (No JVD, no peripheral edema) Pulses: Radial (present and equal), Dorsalis Pedi (present and equal) Abdomen: Soft, Non-tender, Non-distended, Normoactive bowel tones. Musculoskeletal: Unremarkable. Normal range of motion, no swollen or erythematous joints. right CVA tenderness Extremities: No edema, no cyanosis, no clubbing. Skin: No rashes. Warm and dry, no erythematous areas Neurological: Grossly neurologically intact, Normal Speech, Sensation Intact Lymphatic: Lymph nodes Cervical and Axillary not palpable Test 11/29/16 00:20 11/29/16 00:48 White Blood Count 18.7th/mm3 (3.8-10.1) Red Blood Count 4.41mil/mm3 (3.90-5.20) Hemoglobin 13.1g/dL (12.0-15.6) Hematocrit 38.5% (35.0-46.0) Mean Corpuscular Volume 87.3fL (81-100) Mean Corpuscular Hemoglobin 29.7pg (27.0-35.0) Mean Corpuscular Hemoglobin Concent 34.0% (32.0-37.0) Red Cell Distribution Width 14.4% (12.3-15.4) Platelet Count 361bil/L (150-400) Neutrophils (%) (Auto) 88.3% (40-74) Lymphocytes (%) (Auto) 5.3% (14-46) Monocytes (%) (Auto) 5.8% (4-12) Eosinophils (%) (Auto) 0.2% (0-5) Basophils (%) (Auto) 0.1% (0-3) Prothrombin Time 10.3sec (8.1-12.5) Prothromb Time International Ratio 0.96ratio Sodium Level 129mEq/L (134-144) Potassium Level 4.0mEq/L (3.5-5.2) Chloride Level 91mEq/L (97-108) Carbon Dioxide Level 23mmol/L (18-29) Blood Urea Nitrogen 18mg/dL (6-20) Creatinine 0.72mg/dL (0.57-1.00) Estimat Glomerular Filtration Rate 134mL/min (>59) Glucose Level 103mg/dL (60-99) Lactic Acid Level 0.9mmol/L (0.4-2.0) Calcium Level 9.0mg/dL (8.5-10.1) Magnesium Level 1.9mg/dL (1.6-2.6) Total Bilirubin 0.4mg/dL (0.0-1.2) Aspartate Amino Transf (AST/SGOT) 24U/L (0-50) Alanine Aminotransferase (ALT/SGPT) 15U/L (0-32) Alkaline Phosphatase 75U/L (25-150) Total Protein 8.1g/dL (6.4-8.4) Albumin 4.0g/dL (3.4-5.0) Lipase 15U/L (13-60) Procalcitonin 0.31ng/mL (0.00-0.08) Urine Color Yellow (YELLOW) Urine Appearance Clear (CLEAR,HAZY) Urine pH 7.0 (5.0-8.0) Urine Specific [place] 1.010 (1.003-1.035) Urine Protein 30mg/dL (NEG,TRACE) Urine Glucose (UA) Negativemg/dL (NEGATIVE) Urine Ketones Negativemg/dL (NEGATIVE) Urine Occult Blood Small (NEGATIVE) Urine Nitrite Positive (NEGATIVE) Urine Bilirubin Negative (NEGATIVE) Urine Urobilinogen Normalmg/dL (NORMAL) Urine Leukocyte Esterase Moderate (NEGATIVE) Urine RBC 0-2/hpf (0-2) Urine WBC >50/hpf (0-5) Urine Epithelial Cells Many/hpf (NONE-MOD) Urine Crystals None seen (NONE SEEN) Urine Bacteria Many/hpf (NONE-FEW) Urine Hyaline Casts None/lpf (NONE) Urine Granular Casts None seen (NONE SEEN) Urine Waxy Casts None seen (NONE SEEN) Urine Red Blood Cell Casts None seen (NONE SEEN) Urine White Blood Cell Casts None seen (NONE SEEN) Urine Mucus None seen (None Seen) Urine Trichomonas None seen (NONE SEEN) Urine Yeast None (NONE SEEN) Urinalysis Comment None Urine Culture Reflexed Indicated Discharge Medications Discharge Medications Amoxicillin/Clav K 875-125 mg (Augmentin 875-125 mg) 1 Each Tablet 1 TABLET PO BID Prescribed by: AKILA SINGH MD Ketorolac Tromethamine (Ketorolac Tromethamine) 10 Mg Tablet 10 MG PO QID Prescribed by: MERCEDES WELLS Metoclopramide-Expunged Drug, Do Not Renew! (Reglan-Expunged Drug, Do Not Renew! ) 10 Mg Tablet 10 MG PO PRN (Reported) As needed Albuterol-Expunged Drug, Do Not Renew! (Albuterol-Expunged Drug, Do Not Renew!) 8.5 Gm Hfa.aer.ad 2 PUFFS IH PRN (Reported) Ibuprofen (Ibuprofen) 600 Mg Tablet 600 MG PO QID PRN PRN For Pain Prescribed by: AKILA SINGH MD Ibuprofen (Ibuprofen) 600 Mg Tablet 600 MG PO QID PRN PRN For Pain Prescribed by: AKILA SINGH MD Ibuprofen (Ibuprofen) 600 Mg Tablet 600 MG PO QID PRN PRN For Pain Prescribed by: AKILA SINGH MD Sulfamethoxazole/Trimeth 800-160 mg (Bactrim DS) 1 Each Tablet 1 TABLET PO BID PRN PRN infection Prescribed by: MERCEDES WELLS Followup Plan Disposition: LEFT AGAINST MEDICATION ADVICE Devon Garcia MD Nov 29, 2016 06:28
[2016-11-29] MEDS ORDERED: Sodium Chloride LOK Flush 10 mL Syringe IVFLUSH SCH (08:30)
--- NOTE | 2016-11-29 08:52 | DRSVH ---
PROCEDURE: CT ABDOMEN AND PELVIS WITH CONTRAST ([id number]) INDICATIONS: 31 year-old female with right upper quadrant pain for 2 days. TECHNIQUE: After the administration of intravenous contrast, 5 mm thick sections acquired from the diaphragm to the symphysis. 5 mm coronal and sagittal reformats were acquired. For radiation dose reduction, the following was used: automated exposure control, adjustment of mA and/or kV according to patient siz e. COMPARISON: [facility], CT, ABD/PELVIS W/CON (PNL), 06/02/2012, 18:45. [facility], CT, ABD/PELVIS W/CON (PNL), 08/13/2011, 17:56. [facility], CT, ABD/PELVIS W/CON (P NL), 08/11/2011, 11:13. FINDINGS: Preliminary interpretation rendered by [facility]. Image quality: Excellent. ABDOMEN: Lung bases: Lung bases are clear. Heart size is normal. Solid organs: Liver and spleen are normal in size. 8 mm hypodense lesion within the lateral right h epatic lobe is unchanged since 2011, reassuring for benign cyst. Gallbladder wall thickness is normal . There is interval increased degree of extrahepatic biliary ductal dilation up to 1.5 cm diameter si nce 2012. Pancreas enhances normally. No adrenal nodules. Several amorphous regions of decreased e nhancement within the superior right kidney appear new since 2012. Left kidney enhances normally. No hydronephrosis. Peritoneum and bowel: Bowel loops demonstrate normal wall thickness and caliber. Retrocecal appendi x appears normal in caliber. There is small free pelvic fluid; no free air. Nodes and vessels: No retroperitoneal or mesenteric adenopathy by size criteria. Aorta and inferior vena cava are normal in size. Miscellaneous: No ventral hernias. PELVIS: Genitourinary: Bladder wall thickness is normal. Retroflexed uterus and ovaries are normal in size. Miscellaneous: No inguinal hernias or adenopathy. Bones: No suspicious bony lesions. No vertebral body compression fractures. IMPRESSION: 1. Regional amorphous hypoenhancement of the superior right kidney, suspicious for pyelonephritis. 2. Interval increased degree of extrahepatic biliary ductal dilation up to 1.5 cm diameter. Findings may suggest underlying distal common bile duct stricture or stone. Recommend correlation with liver f unction tests, and consider MRCP as clinically needed for further evaluation. Dictated by: Jorge Alberto Tolbert M.D. on 11/29/2016 at 8:41 Approved by: Jorge Alberto Tolbert M.D. on 11/29/2016 at 8:50
[2016-11-29] MEDS ORDERED: levoFLOXacin Inj 750 MG in IV Premix 1 EACH IV SCH (23:00)
== END 2016-11-29 06:25 | disposition left against medical advice (07) | DRG 872 ==
LOC: SED 23:26 → MOC 11-29 04:01
PROVIDERS: ADMIT Hospitalist; ATTEND Family Medicine
DX: A41.9 Sepsis, unspecified organism (principal); N10 Acute pyelonephritis; J45.909 Unspecified asthma, uncomplicated; F15.10 Other stimulant abuse, uncomplicated; F41.8 Other specified anxiety disorders; K21.9 Gastro-esophageal reflux disease without esophagitis; F17.200 Nicotine dependence, unspecified, uncomplicated; Z79.51 Long term (current) use of inhaled steroids; Z91.14 Patient's other noncompliance with medication regimen